=== PATIENT | male | born 1950 | race Caucasian/White ===

== ENCOUNTER 2017-03-08 21:26 | Emergency (ER) | payer MEDICARE, OTHER ==
[2017-03-08] MEDS ORDERED: Sodium Chloride 0.9% 1,000 ML IV ONE (21:51)
[2017-03-08] MEDS ORDERED: Ondansetron 4 MG/2 ML SDV IVPUSH ONE (21:52)
[2017-03-08] MEDS ORDERED: Ciprofloxacin 500 MG Tab ONE (22:00)
[2017-03-08] MEDS ORDERED: Ondansetron 4 MG Tab.DIS ONE (22:00)
[2017-03-08] MEDS ORDERED: Ondansetron 4 MG/2 ML SDV ONE (22:31)
[2017-03-08] MEDS ORDERED: cefTRIAXone 1 GM in Sodium Chloride 0.9% 50 ML IV ONE (22:35)
[2017-03-08] MEDS ORDERED: cefTRIAXone 1 GM Vial ONE (22:38)
[2017-03-08 23:11] VITALS: BP 147/83
--- NOTE | 2017-03-09 00:04 | ER ---
HISTORY OF PRESENT ILLNESS: A 66-year-old male here with his daughter. The patient has had episodes of nausea, vomiting, and diarrhea, this started about midnight last evening. He tells me every 2 hours like clockwork, he will have an episode. The diarrhea seems to have gotten better this morning. He will have some soft stools but not runny, watery stools but he still is having nausea and vomiting every two hours. He has not noticed any blood or black coffee ground appearance to the vomit. He states that he just feels tired. He has occasional cough but this is chronic for him. He does have history of COPD. The patient is not sure if he has been running a fever or not. He does have some abdominal discomfort pointing to the epigastric area. CURRENT MEDICATIONS: Reviewed. ALLERGIES: NONE. OBJECTIVE: GENERAL APPEARANCE: The patient is awake and alert. No respiratory distress. VITAL SIGNS: Reviewed. Blood pressure 147/83, he is afebrile. Pulse is 109, respirations 16. HEENT: Oral mucous membranes are slightly dry. Tonsils not enlarged or injected. Pharynx not inflamed. NECK: Supple. LUNGS: Clear with mildly reduced air exchange throughout the lung lezama. I do not hear any rales, wheezes, or rhonchi. There is no CVA tenderness with percussion. CARDIAC: Heart sounds distinct. No murmurs. ABDOMEN: Soft. There is tenderness all across the epigastric area with palpation. Minimal discomfort involving the lower quadrants with palpation. Bowel sounds are present and active. SKIN: Warm and dry. LAB WORK: [place] [address], neutrophils are also elevated at 80.6. CMP shows elevated BUN and creatinine consistent with dehydration. Electrolytes are good. UA is normal or clear. DIAGNOSES: 1. Gastroenteritis, bacterial in nature. 2. Dehydration. TREATMENT PLAN: The patient was given a liter of normal saline in a bolus form. He was also given Rocephin 1 g IV. I will send him home with Cipro 500 mg b.i.d. He is to take his first dose tonight. He was also given Zofran 8 mg IV here in the emergency room, and I have sent home a few tablets to take every 4-6 hours as needed. He is to push fluids and rest. If the symptoms do not improve, he is to follow up here in the emergency room as needed over the next day or so or call the clinic if needed tomorrow. He plans on going back home which is in [place] on Sunday. If he is improving, they are to follow up his clinic back home next Sunday. The patient is here with his daughter. They agree with the treatment plan and have no further questions. The patient did not have any episodes of nausea, vomiting, or diarrhea while here in the emergency room. DIONTE/JOSE /[id number]
== END 2017-03-08 23:37 | disposition home or self-care (01) ==
LOC: LB.ED 21:26
DX: A04.9 Bacterial intestinal infection, unspecified (principal); E86.0 Dehydration; B96.89 Other specified bacterial agents as the cause of diseases classified elsewhere
CPT/HCPCS: 36415; 80053; 81001; 85025; 96365; 96375; 99283; 99284; A9270; J0696; J2405; J7040; J7050